=== PATIENT | female | born 1990 | race Caucasian/White ===

== ENCOUNTER 2021-11-24 15:55 | Emergency (ER) | payer SELFPAY ==
--- OUTSIDE RECORDS SUMMARY | 2021-11-24 15:57 | XMS REPORT | Continuity of Care Document ---
:1990 Author Organization [facility] t Address [address] [place] [address] Care Team Providers Name Role Phone PCP, DOES NOT HAVE A Primary Care Physician Unavailable EBRAHIM Attending Clinician Unavailable Doctor Unassigned, Name Attending Clinician Unavailable Problems Condition Condition Condition Status Onset Resolution Last Treating Co mments Source Name Details Category Date Date Treatment Clinician Date No known No known Disease Unive rs active active ity of problems problems [facility] Allergies, Adverse Reactions, Alerts Allergy Allergy Status Severity Reaction(s) Onset Inactive Treating Comm ents Source Name Type Date Date Clinician KETOROLA DRUG Active N/V 2020-09 [facility] C INGREDI 2-07 ity of [place] 00:00: [place] MINE 00 [facility] Ketorola Propensi Active Nausea 2020-09 Per Univer s c ty to and/or 2-07 patient ity of [place] adverse Vomiting 00:00: report [place] [facility] reaction 00 [facility] Branch NO KNOWN Drug Active Univers ALLERGIE Class ity of S [facility] Social History Social Habit Start Date Stop Date Quantity Comments Source Sex Assigned At [birth year] [facility] 00:00:00 00:00:00 [facility] Smoking Status Start Date Stop Date Source Unknown if ever smoked [facility] Medications Ordered Filled Start Stop Current Ordering Indication Dosage Frequency Signature Comments Components Source Medication Medication Date Date Medication? Clinician (SIG) Name Name oxyCODONE-a Yes 1{tbl} Take 1 Un nicolette cetaminophe 3-12 tablet by it[place] 10[place] 13[place]37[place] [facility] oxyCODONE-a Yes 1{tbl} Take 1 Un nicolette cetaminophe 3-12 tablet by ity [place] 10-325 [place] 13[place]37[place] 23 [facility] Procedures This patient has no known procedures. Encounters Start End Encounter Admission Attending Care Care Encounter Source Date/Time Date/Time Type Type Clinicians Facility Department ID 2021-11-21 2021-11-21 Outpatient Sammi [facility] [id number] Univers 13:30:00 14:01:31 RICHY mayo of [facility] 2021-11-21 2021-11-21 Letter Doctor GAN [id number] Univers 00:00:00 00:00:00 (Out) Unassigned, MARGIE [id number] ity of [facility] [id number] Ti as [phone] [facility] 044 Branch 2021-11-21 2021-11-21 Letter Doctor ELVIA [id number] Univers 00:00:00 00:00:00 (Out) Unassigned, MARGIE [id number] ity of [facility] [id number] Ti as [phone] [place] [id number] Branch Results This patient has no known results.
[2021-11-24] MEDS ORDERED: TETRACAINE HCL 0.5% 4ML OPTH ONE (16:53)
[2021-11-24] MEDS ORDERED: FLUORESCEIN SODIUM 1 MG/WRAP ONE (16:53)
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
[2021-11-24] MEDS ORDERED: TETANUS & DIPHTHERIA TOX,ADULT 0.5 ML VIAL ONE (17:14)
[2021-11-24 18:25] VITALS: BP 125/74; TEMP 98.8; O2SAT 98
== END 2021-11-24 17:27 | disposition home or self-care (01) ==
LOC: ER 15:55
DX: L55.0 Sunburn of first degree (principal); H16.133 Photokeratitis, bilateral; W89.1XXA Exposure to tanning bed, initial encounter; Z23 Encounter for immunization; Z88.5 Allergy status to narcotic agent
CPT/HCPCS: 90471; 90714; 99283